=== PATIENT | female | born 1940 ===

== ENCOUNTER 2017-05-04 06:02 | Day surgery (SDC) | payer MEDICARE ==
[2017-05-04] MEDS ORDERED: Midazolam 2 MG/2 ML VIAL ONE (07:45)
[2017-05-04] MEDS ORDERED: Iohexol 350mg/ml 100 ML ONE (08:03)
[2017-05-04 08:53] VITALS: BMI 30.4
[2017-05-04] MEDS ORDERED: Sodium Chloride 0.9% 500 ML IV SCH (09:00)
--- NOTE | 2017-05-04 18:26 | CARDCATH ---
PROCEDURE DATE: 05/04/2017 PROCEDURES: 1. Left heart catheterization. 2. Coronary angiogram. 3. Radiological supervision and interpretation of the left heart catheterization and coronary angiogram. CLINICAL INDICATIONS: 1. Chest pain. 2. Abnormal stress test. 3. Diabetes. 4. Hypothyroidism. 5. Preoperative cardiac risk assessment. REFERRING PHYSICIAN: Sarah Naidu MD PERFORMING PHYSICIAN: Carson Palomares MD PROCEDURE: After informed consent, the patient was prepped and draped in the usual sterile fashion. A 2% Lidocaine was given in the right groin for local anesthesia. Using micropuncture technique, a 6-Moroccan sheath was introduced into the right common femoral artery. A JL4 6-Moroccan diagnostic catheter engaged into left main coronary artery. Left coronary angiogram was performed. JR4 6-Moroccan diagnostic catheter engaged into right coronary artery. Contrast injected and right coronary angiogram was performed. JR4 diagnostic catheter crossed into left ventricle across the aortic valve. LV end-diastolic pressure was measured. Contrast injected and the LV angiogram was performed. The catheter was pulled back across the aortic valve. Gradient across the aortic valve was measured. The patient tolerated the procedure well. Postprocedure, Mynx closure device was deployed with excellent hemostasis. FINDINGS: 1. Left main coronary artery is patent. 2. Proximal LAD has 80% concentric stenosis. Mid and distal LAD is patent. 3. Left circumflex is dominant system. Patent. 4. Right coronary artery is nondominant. Patent. 5. LV ejection fraction is approximately 80%. No wall motion abnormalities. No gradient across the aortic valve. EDP is 25. IMPRESSION: 1. Single-vessel coronary artery disease. 2. Normal left ventricular systolic function. Recommend coronary intervention prior to the scheduled elective surgery. Carson Palomares MD
== END 2017-05-04 12:15 | disposition home or self-care (01) ==
LOC: C.CATHLAB 06:02
PROVIDERS: ATTEND Internal Medicine Cardiovascular Disease
DX: I25.10 Atherosclerotic heart disease of native coronary artery without angina pectoris (principal); E11.9 Type 2 diabetes mellitus without complications; E03.9 Hypothyroidism, unspecified
CPT/HCPCS: 82948; 93452; C1760; C1887; C1893; J1644; J2250; J3010; J7040; Q9967

== ENCOUNTER 2017-11-30 14:10 | Emergency (ER) | payer MEDICARE ==
[2017-11-30 14:27] VITALS: BMI 29.5
--- NOTE | 2017-11-30 15:18 | C.PDOC ---
History Of Present Illness 77 y/o female is brought to ED via EMS for evaluation of pain to right side of body s/p trip and fall while waiting for the bus today. Notes she fell on to the right side of her body, hitting the right side of her chest and her head. Denies LOC, headache, weakness, or numbness. Pt is taking Plavix after cardiac stent placement. Denies chest pain, shortness of breath, or any other associated symptoms at this time. - HPI Time Seen by Provider: 11/30/17 14:33 Chief Complaint (Nursing): Trauma History Per: Patient History/Exam Limitations: no limitations Injury Occurred (Timing): Hours Ago: Recent travel outside of the [place]: No Additional History Per: Patient Past Medical History Reviewed: Historical Data, Nursing Documentation, Vital Signs Vital Signs: Last Vital Signs Temp 97.9 F 11/30/17 14:21 Pulse 76 11/30/17 14:21 Resp 18 11/30/17 14:21 BP 146/74 11/30/17 14:21 Pulse Ox 100 11/30/17 14:21 - Medical History PMH: Asthma ("NOT A PROBLEM FOR SOME TIME." (TODAY IS 04/16/17)), Diabetes, HTN, Hypothyroidism, Osteoporosis Denies: Chronic Kidney Disease Family History: States: Unknown Family Hx - Social History Hx Tobacco Use: No Hx Alcohol Use: No Hx Substance Use: No - Immunization History Hx Tetanus Toxoid Vaccination: No Hx Influenza Vaccination: No Hx Pneumococcal Vaccination: No Review Of Systems Except As Marked, All Systems Reviewed And Found Negative. Constitutional: Negative for: Fever, Chills Cardiovascular: Positive for: Other (right rib area). Negative for: Chest Pain Respiratory: Negative for: Shortness of Breath Gastrointestinal: Negative for: Nausea, Vomiting, Abdominal Pain Neurological: Negative for: Weakness, Numbness, Headache, Dizziness Physical Exam - Physical Exam Appears: Non-toxic, No Acute Distress Skin: Warm, Dry, Other (0.5cm of superficial laceration to lateral aspect of right eyebrow, bleeding is controlled) Head: Atraumatic, Normacephalic, No Tenderness (no facial tenderness) Eye(s): bilateral: Normal Inspection Oral Mucosa: Moist Neck: Normal ROM, No Midline Cervical Tenderness, No Paracervical Tenderness, Supple Chest: Symmetrical, No Deformity, Tenderness (right lateral ribs, mostly at level of T4), No Ecchymosis, No Subcutaneous Emphysema, Other Cardiovascular: Rhythm Regular, No Murmur Respiratory: Normal Breath Sounds, No Accessory Muscle Use, No Rales, No Rhonchi, No Wheezing Gastrointestinal/Abdominal: Soft, No Tenderness Back: Normal Inspection Extremity: Normal ROM, No Pedal Edema, No Deformity Extremity: Bilateral: Normal Color And Temperature Pulses: Right Radial: Normal, Right Dorsalis Pedis: Normal Neurological/Psych: Oriented x3, Normal Speech, Normal Cognition Gait: Steady ED Course And Treatment O2 Sat by Pulse Oximetry: 100 (RA) Pulse Ox Interpretation: Normal - Other Rad R rib XR X-Ray: Read By Radiologist Interpretation: Date of service: 11/30/2017. PROCEDURE: Radiographs of the Chest and Right Ribs. HISTORY: fall. COMPARISON: None available. TECHNIQUE: Frontal radiograph of the chest and multiple oblique radiographs of the right ribs were obtained. FINDINGS: RIGHT RIBS: No acute fracture or focal lesion visualized. There is diffuse bone demineralization. LUNGS: The right lung is well inflated. There is right basilar atelectasis. PLEURA: No pneumothorax or pleural fluid. CARDIOVASCULAR: Normal sized heart. No pulmonary vascular congestion. OTHER FINDINGS: None. IMPRESSION: No acute rib fracture. No pneumothorax or pleural effusion. - CT Scan/US Head Other Rad Studies (CT/US): Radiology Report Reviewed CT/US Interpretation: Date of service: 11/30/2017. PROCEDURE: CT HEAD WITHOUT CONTRAST. HISTORY: fall. COMPARISON: None available. TECHNIQUE: Axial computed tomography images were obtained through the head/brain without intravenous contrast. Radiation dose: Total exam DLP = 1024.68 mGy-cm. This CT exam was performed using one or more of the following dose reduction techniques: Automated exposure control, adjustment of the mA and/or kV according to patient size, and/or use of iterative reconstruction technique. FINDINGS: HEMORRHAGE: No intracranial hemorrhage. BRAIN: There are mild chronic m icroangiopathic changes. There is no mass, mass effect or abnormal extra-axial fluid collection. There is no territorial infarction. The midline sagittal structures are normal. VENTRICLES: There is mild age-related global parenchymal volume loss and proportionate enlargement of the ventricles and cortical sulci. CALVARIUM: There is no calvarial fracture or extracranial soft tissue swelling. PARANASAL SINUSES: Predominantly clear. MASTOID AIR CELLS: Predominantly clear. OTHER FINDINGS: None. IMPRESSION: No acute intracranial abnormality. Mild chronic microangiopathic changes and mild age-related global parenchymal volume loss. Medical Decision Making Medical Decision Making: Plan: * Head CT * Ribs Xray Imaging unremarkable. Results discussed with patient. Stable for discharge home. Superficial laceration lateral to right eye, already healing, no need for repair. Disposition - Disposition Disposition: HOME/ ROUTINE Disposition Time: 16:33 Condition: GOOD Additional Instructions: BHUMI AUGUST, thank you for letting us take care of you today. Your provider was Donna Saleem MD and you were treated for FALL/DIZZINESS. The emergency medical care you received today was directed at your acute symptoms. If you were prescribed any medication, please fill it and take as directed. It may take several days for your symptoms to resolve. Return to the Emergency Department if your symptoms worsen, do not improve, or if you have any other problems. Please contact your doctor or call one of the physicians/clinics you have been referred to that are listed on the Patient Visit Information form that is included in your discharge packet. Bring any paperwork you were given at discharge with you along with any medications you are taking to your follow up visit. Our treatment cannot replace ongoing medical care by a primary care provider outside of the emergency department. Thank you for allowing the [facility] team to be part of your care today. If you had an X-Ray or CT scan: A Radiologist will review the ED reading if any change in treatment is needed we will contact you. If you had a blood, urine, or wound culture: It will take several days for the results, if any change in treatment is needed we will contact you. If you had an STI test: It will take 48 hours for the results. Please call after 1 week if you have not heard back. Instructions: Minor Head Injury (DC), Bruised Rib (DC) Forms: [employer] (Maori) - Clinical Impression Clinical Impression: Fall, Head injury, Contusion of rib on right side - Scribe Statement The provider has reviewed the documentation as recorded by the Scribe KP All medical record entries made by the Scribe were at my direction and personally dictated by me. I have reviewed the chart and agree that the record accurately reflects my personal performance of the history, physical exam, medical decision making, and the department course for this patient. I have also personally directed, reviewed, and agree with the discharge instructions and disposition.
--- NOTE | 2017-11-30 15:36 | RAD ---
Date of service: 11/30/2017 PROCEDURE: Radiographs of the Chest and Right Ribs. HISTORY: fall COMPARISON: None available. TECHNIQUE: Frontal radiograph of the chest and multiple oblique radiographs of the right ribs were obtained. FINDINGS: RIGHT RIBS: No acute fracture or focal lesion visualized. There is diffuse bone demineralization. LUNGS: The right lung is well inflated. There is right basilar atelectasis. PLEURA: No pneumothorax or pleural fluid. CARDIOVASCULAR: Normal sized heart. No pulmonary vascular congestion. OTHER FINDINGS: None. IMPRESSION: No acute rib fracture. No pneumothorax or pleural effusion.
--- NOTE | 2017-11-30 16:18 | CT ---
Date of service: 11/30/2017 PROCEDURE: CT HEAD WITHOUT CONTRAST. HISTORY: fall COMPARISON: None available. TECHNIQUE: Axial computed tomography images were obtained through the head/brain without intravenous contrast. Radiation dose: Total exam DLP = 1024.68 mGy-cm. This CT exam was performed using one or more of the following dose reduction techniques: Automated exposure control, adjustment of the mA and/or kV according to patient size, and/or use of iterative reconstruction technique. FINDINGS: HEMORRHAGE: No intracranial hemorrhage. BRAIN: There are mild chronic microangiopathic changes. There is no mass, mass effect or abnormal extra-axial fluid collection. There is no territorial infarction. The midline sagittal structures are normal. VENTRICLES: There is mild age-related global parenchymal volume loss and proportionate enlargement of the ventricles and cortical sulci. CALVARIUM: There is no calvarial fracture or extracranial soft tissue swelling. PARANASAL SINUSES: Predominantly clear. MASTOID AIR CELLS: Predominantly clear. OTHER FINDINGS: None. IMPRESSION: No acute intracranial abnormality. Mild chronic microangiopathic changes and mild age-related global parenchymal volume loss.
[2017-11-30 16:31] VITALS: BP 124/61; PULSE 70; RESP 20; TEMP 97.8
[2017-12-01 13:47] VITALS: O2SAT 100
== END 2017-11-30 16:43 | disposition home or self-care (01) ==
LOC: C.ER 14:10
DX: S09.90XA Unspecified injury of head, initial encounter (principal); S20.211A Contusion of right front wall of thorax, initial encounter; W01.0XXA Fall on same level from slipping, tripping and stumbling without subsequent striking against object, initial encounter; I10 Essential (primary) hypertension; E11.8 Type 2 diabetes mellitus with unspecified complications; E03.9 Hypothyroidism, unspecified

== ENCOUNTER 2018-05-15 10:59 | Outpatient (CLI) | payer MEDICARE | END 2018-05-15 11:00 | disposition home or self-care (01) | LOC: C.RADIC 10:59 ==